=== PATIENT | female | born 2000 | race African-American/Black ===

== ENCOUNTER 2023-01-21 07:18 | Emergency (ER) | payer OTHER ==
[~2023-01-21] VITALS: Ht 180.3 cm; Wt 100.0 kg
[2023-01-21] MEDS ORDERED: ACETAMINOPHEN 500 MG TABLET PO ONE (08:15)
[2023-01-21] MEDS ORDERED: ONDANSETRON HCL 4 MG/2 ML VIAL IVP ONE (08:15)
[2023-01-21] MEDS ORDERED: SODIUM CHLORIDE 0.9% 1,000 ML IV ONE (08:15)
[2023-01-21 12:40] VITALS: BP 133/69
[2023-01-21] MEDS ORDERED: DOXY1TAB8 PO (12:55)
== END 2023-01-21 13:02 | disposition home or self-care (01) ==
LOC: EMS 07:21
DX: O26.891 Other specified pregnancy related conditions, first trimester (principal); O21.0 Mild hyperemesis gravidarum; Z3A.01 Less than 8 weeks gestation of pregnancy; I10 Essential (primary) hypertension
CPT/HCPCS: 99285; 96374; 70450; 96361; J2405; J7030